=== PATIENT | male | born 1985 | race Caucasian/White ===

== ENCOUNTER 2020-11-20 20:44 | Emergency (ER) | payer OTHER ==
[~2020-11-20] VITALS: Ht 167.6 cm; Wt 63.5 kg
== END 2020-11-21 10:11 | disposition home or self-care (01) ==
LOC: ED 20:44
DX: S61.216A Laceration without foreign body of right little finger without damage to nail, initial encounter (principal); S00.93XA Contusion of unspecified part of head, initial encounter; F10.129 Alcohol abuse with intoxication, unspecified; F17.200 Nicotine dependence, unspecified, uncomplicated; Y08.89XA Assault by other specified means, initial encounter; Y93.89 Activity, other specified; Y92.89 Other specified places as the place of occurrence of the external cause; Y90.8 Blood alcohol level of 240 mg/100 ml or more